=== PATIENT | female | born 1980 | race Two or more races ===

== ENCOUNTER 2019-05-03 01:47 | Emergency (ER) | payer SELFPAY ==
[~2019-05-03] VITALS: Ht 154.9 cm; Wt 84.4 kg
[2019-05-03] MEDS ORDERED: ONDANSETRON PF 4 MG/2 ML VIAL. IV ONE (02:15)
--- NOTE | 2019-05-03 02:15 | PHYS DOC ---
Adult General Chief Complaint Chief Complaint: ABDOMINAL PAIN HPI HPI 39-year-old female presents to the emergency bowel complaints of right upper quadrant abdominal pain. Patient initially started 2 days ago, states he went to the primary care physician tests were obtained and pain medications were provided. She states her last couple days pain is improved however tonight it came back. She described as a constant sensation. No fever, no diarrhea however nausea. She denies any vomiting. Nothing makes her pain worse, nothing makes her pain better. She has no epigastric tenderness on exam. Patient states the pain radiates around to her back. Review of Systems Review of Systems Constitutional: Denies fever or chills [] Respiratory: Denies cough or shortness of breath [] Cardiovascular: No additional information not addressed in HPI [] GI: + abdominal pain, nausea, no vomiting, bloody stools or diarrhea [] : Denies dysuria or hematuria [] Musculoskeletal: Pain radiates from right upper quadrant around to her back Neurologic: Denies headache, focal weakness or sensory changes [] All other systems were reviewed and found to be within normal limits, except as documented in this note. Current Medications Current Medications Current Medications Medications (Trade) Dose Ordered Sig/Bennett Start Time Stop Time Status Last Admin Dose Admin Fentanyl Citrate (Fentanyl 2ml Vial) 50 mcg 1X ONCE 05/03/19 02:45 05/03/19 02:46 DC 05/03/19 02:41 50 MCG Ondansetron HCl (Zofran) 4 mg 1X ONCE 05/03/19 02:15 05/03/19 02:39 DC 05/03/19 02:41 4 MG Sodium Chloride 1,000 ml @ 1,000 mls/hr 1X ONCE 05/03/19 02:30 05/03/19 03:29 DC 05/03/19 02:41 1,000 MLS/HR Allergies Allergies Allergies Coded Allergies Type Severity Reaction Last Updated Verified No Known Drug Allergies 05/03/19 No Physical Exam Physical Exam Constitutional: Well developed, well nourished, acute distress secondary to pain HENT: Normocephalic, atraumatic, bilateral external ears normal, oropharynx moist, no oral exudates, nose normal. [] Eyes: PERRLA, EOMI, conjunctiva normal, no discharge. [] Cardiovascular:Heart rate regular rhythm, no murmur [] Lungs & Thorax: Bilateral breath sounds clear to auscultation [] Abdomen: Tender to palpation right upper quadrant, no masses appreciated, bowel sounds present Skin: Warm, dry, no erythema, no rash. [] Extremities: No tenderness, no cyanosis, no edema. [] Neurologic: Alert and oriented X 3, no focal deficits noted. [] Psychologic: Affect normal, judgement normal, mood normal. [] Current Patient Data Vital Signs Vital Signs Date Time Temp Pulse Resp B/P (MAP) Pulse Ox O2 Delivery O2 Flow Rate FiO2 05/03/19 03:18 76 14 112/77 (89) 97 Room Air 05/03/19 02:06 98.3 98.3 Lab Values Laboratory Tests Test 05/03/19 02:00 05/03/19 03:16 White Blood Count 10.0 x10^3/uL (4.0-11.0) Red Blood Count 4.53 x10^6/uL (3.50-5.40) Hemoglobin 12.6 g/dL (12.0-15.5) Hematocrit 38.2 % (36.0-47.0) Mean Corpuscular Volume 84 fL (79-100) Mean Corpuscular Hemoglobin 28 pg (25-35) Mean Corpuscular Hemoglobin Concent 33 g/dL (31-37) Red Cell Distribution Width 15.7 % (11.5-14.5) H Platelet Count 321 x10^3/uL (140-400) Neutrophils (%) (Auto) 46 % (31-73) Lymphocytes (%) (Auto) 44 % (24-48) Monocytes (%) (Auto) 4 % (0-9) Eosinophils (%) (Auto) 5 % (0-3) H Basophils (%) (Auto) 1 % (0-3) Neutrophils # (Auto) 4.6 x10^3/uL (1.8-7.7) Lymphocytes # (Auto) 4.4 x10^3/uL (1.0-4.8) Monocytes # (Auto) 0.4 x10^3/uL (0.0-1.1) Eosinophils # (Auto) 0.5 x10^3/uL (0.0-0.7) Basophils # (Auto) 0.1 x10^3/uL (0.0-0.2) Sodium Level 139 mmol/L (136-145) Potassium Level 3.9 mmol/L (3.5-5.1) Chloride Level 103 mmol/L (98-107) Carbon Dioxide Level 24 mmol/L (21-32) Anion Gap 12 (6-14) Blood Urea Nitrogen 15 mg/dL (7-20) Creatinine 0.9 mg/dL (0.6-1.0) Estimated GFR (Cockcroft-Gault) 70.5 BUN/Creatinine Ratio 17 (6-20) Glucose Level 145 mg/dL (70-99) H Calcium Level 9.0 mg/dL (8.5-10.1) Total Bilirubin 0.4 mg/dL (0.2-1.0) Aspartate Amino Transferase (AST) 173 U/L (15-37) H Alanine Aminotransferase (ALT) 318 U/L (14-59) H Alkaline Phosphatase 89 U/L (46-116) Total Protein 7.2 g/dL (6.4-8.2) Albumin 3.3 g/dL (3.4-5.0) L Albumin/Globulin Ratio 0.8 (1.0-1.7) L Lipase 141 U/L (73-393) POC Urine HCG, Qualitative Hcg negative (Negative) Laboratory Tests 05/03/19 02:00 Laboratory Tests 05/03/19 02:00 EKG EKG [] Radiology/Procedures Radiology/Procedures [] Course & Med Decision Making Course & Med Decision Making Pertinent Labs and Imaging studies reviewed. (See chart for details) []39-year-old female presents to the emergency bowel complaints of right upper quadrant abdominal pain. Patient initially started 2 days ago, states he went to the primary care physician tests were obtained and pain medications were provided. She states her last couple days pain is improved however tonight it came back. She described as a constant sensation. No fever, no diarrhea however nausea. She denies any vomiting. Nothing makes her pain worse, nothing makes her pain better. She has no epigastric tenderness on exam. Patient states the pain radiates around to her back. Labs/Imaging reviewed. White blood cell count 10.0, AST 137, ALT 318, alkaline phosphatase normal, lipase 141 within normal limits. HCG negative. Wet read of ultrasound of the gallbladder reveals no significant thickening of the color wall, common bile duct within normal limits. No evidence of cholecystitis or cholelithiasis. There is evidence of fatty liver appreciated. Discussed with patient she may have a normal structural gallbladder however consider further workup with outpatient provider regarding PIPIDA scan. Pain has subsequently bee n relieved with fentanyl and Zofran. Her vital by mouth pain medications as well as antinausea medication upon discharge. Discussed with patient if pain worsens, fever, nausea vomiting she can return to the emergency department for further evaluation. Dragon Disclaimer Dragon Disclaimer This electronic medical record was generated, in whole or in part, using a voice recognition dictation system. Departure Departure Impression: Primary Impression: Right upper quadrant abdominal pain Additional Impressions: Elevated liver function tests Steatosis of liver Disposition: HOME, SELF-CARE Condition: STABLE Patient Instructions: Biliary Colic Additional Instructions: Recommend follow up with PCP 3 - 5 days, consider PIPIDA scan as outpatient to evaluate function of gallbladder Return to the ER with worsening symptoms, intractable pain, fever, altered mental status Duncan prescription provided for pain Zofran prescription provided for nausea Scripts Ondansetron Hcl (ZOFRAN) 4 Mg Tablet 1 TAB PO PRN Q6-8HRS, #12 TAB Prov: JAKE RAMIREZ MD 05/03/19 Hydrocodone/Apap 7.5-325 (NORCO 7.5-325 TABLET) 1 Each Tablet 1 TAB PO PRN Q6HRS PRN for PAIN for 3 Days, TAB 0 Refills Prov: JAKE RAMIREZ MD 05/03/19 Problem Qualifiers JAKE RAMIREZ MD May 03, 2019 02:15
[2019-05-03 02:19] LABS: BASO # 0.1 x10^3/uL (0.0-0.2); BASO % 1 % (0-3); EOS # 0.5 x10^3/uL (0.0-0.7); EOS % 5 % (0-3); HEMATOCRIT 38.2 % (36.0-47.0); HEMOGLOBIN 12.6 g/dL (12.0-15.5); LYMPH # 4.4 x10^3/uL (1.0-4.8); LYMPH % 44 % (24-48); MEAN CORPUSCULAR HEMOGLOBIN 28 pg (25-35); MEAN CORPUSCULAR HGB CONC 33 g/dL (31-37); MEAN CORPUSCULAR VOLUME 84 fL (79-100); MONO # 0.4 x10^3/uL (0.0-1.1); MONO % 4 % (0-9); NEUT # 4.6 x10^3/uL (1.8-7.7); NEUT % 46 % (31-73); PLATELET COUNT 321 x10^3/uL (140-400); RED BLOOD COUNT 4.53 x10^6/uL (3.50-5.40); RED CELL DISTRIBUTION WIDTH 15.7 % (11.5-14.5)
[2019-05-03 02:29] LABS: CREATININE 0.9 mg/dL (0.6-1.0); GFR 70.5; POTASSIUM 3.9 mmol/L (3.5-5.1)
[2019-05-03] MEDS ORDERED: IV NORMAL SALINE 1000ML BAG 1,000 ML IV ONE (02:30)
[2019-05-03 02:34] LABS: ALBUMIN 3.3 g/dL (3.4-5.0); ALBUMIN/GLOBULIN RATIO 0.8 (1.0-1.7); TOTAL BILIRUBIN 0.4 mg/dL (0.2-1.0); TOTAL PROTEIN 7.2 g/dL (6.4-8.2)
[2019-05-03] MEDS ORDERED: fentaNYL PF VIAL 100 MCG/2 ML VIAL IV ONE (02:45)
[2019-05-03 03:18] VITALS: BP 112/77
[2019-05-03 04:09] LABS: BILIRUBIN,URINE NEGATIVE (NEG); CLARITY,URINE CLEAR; COLOR,URINE YELLOW; NITRITE,URINE NEGATIVE (NEG); PROTEIN,URINE NEGATIVE (NEG-TRACE)
[2019-05-03] MEDS ORDERED: ONDA4TAB7 PO (04:19)
[2019-05-03] MEDS ORDERED: HYDR-3165 PO (04:19)
[2019-05-03 04:25] LABS: SQUAMOUS EPITHELIAL CELL,UR MOD /LPF
--- NOTE | 2019-05-03 04:25 | RAD ---
Examination: Ultrasound abdomen limited HISTORY: History of right upper quadrant pain COMPARISON: None available FINDINGS: The pancreas is not well-visualized due to bowel gas. There is increased echogenicity identified in the liver likely hepatic steatosis. The liver measures 18.7 cm. The gallbladder is mildly distended. No evidence of gallstones. The common bile duct measures 4.4 mm in transverse dimension. Right kidney measures 10.2 cm in length. The visualized IVC is within normal limits of dimension. IMPRESSION: 1. Hepatic steatosis. Electronically signed by: Piotr Longoria MD (05/03/2019 4:21 AM) [id number]
[2019-05-03 04:26] LABS: BACTERIA,URINE FEW /HPF (0-FEW); RBC,URINE 0 /HPF (0-2)
== END 2019-05-03 04:31 | disposition home or self-care (01) ==
LOC: ER 01:47
DX: K76.0 Fatty (change of) liver, not elsewhere classified (principal); R10.11 Right upper quadrant pain; R79.89 Other specified abnormal findings of blood chemistry
CPT/HCPCS: 36415; 76705; 80053; 81001; 81025; 83690; 85025; 96374; 96375; 99285; J2405; J3010; J7030

== ENCOUNTER 2020-04-07 22:40 | Emergency (ER) | payer SELFPAY ==
[~2020-04-07] VITALS: Ht 172.7 cm; Wt 77.0 kg
[~2020-04-07 22:40] MED LIST: HYDR-3165 PO; ONDA4TAB7 PO
[2020-04-07 23:05] VITALS: BP 152/87
[2020-04-07] MEDS ORDERED: HYDROcodone/APAP 5/325MG 1 TAB TABLET PO ONE (23:30)
[2020-04-07] MEDS ORDERED: HYDR-3164 PO (23:47)
--- NOTE | 2020-04-07 23:48 | PHYS DOC ---
Past Medical History Past Medical History: Diabetes-Type II Past Surgical History: Tubal ligation Smoking Status: Never Smoker Alcohol Use: None Drug Use: None General Adult EDM: Chief Complaint: ANKLE PROBLEM HPI: HPI: The history was obtained from the patient. Patient is a 40-year-old female with PMH [id number] diabetes who presents with a chief complaint of right ankle pain status post injury. Coworker uses electro optical engineer at bedside with patient's permission. Patient states while walking up a flight of stairs at home just prior to arrival she twisted her right ankle. She states she was only on the first step. She states she fell backward on the ground. She describes an inversion ankle injury. She notes pain over the lateral medial malleolus. States the pain is worse over the medial malleolus. Noted swelling. States she did try 60 mg of ibuprofen with minimal relief. Does note some right knee pain. Denies striking her head or LOC. Has not been ambulatory since the fall. No other complaints. Review of Systems: Review of Systems: Constitutional: Denies fever or chills. [] Eyes: Denies change in visual acuity. [] HENT: Denies nasal congestion or sore throat. [] Respiratory: Denies cough or shortness of breath. [] Cardiovascular: Denies chest pain or edema. [] GI: Denies abdominal pain, nausea, vomiting, bloody stools or diarrhea. [] : Denies dysuria. [] Musculoskeletal: Positive for myalgias and arthralgias Integument: Denies rash. [] Neurologic: Denies headache, focal weakness or sensory changes. [] Endocrine: Denies polyuria or polydipsia. [] Lymphatic: Denies swollen glands. [] Psychiatric: Denies depression or anxiety. [] Heart Score: Risk Factors: Risk Factors: DM, Current or recent (<one month) smoker, HTN, HLP, family history of CAD, obesity. Risk Scores: Score 0 - 3: 2.5% MACE over next 6 weeks - Discharge Home Score 4 - 6: 20.3% MACE over next 6 weeks - Admit for Clinical Observation Score 7 - 10: 72.7% MACE over next 6 weeks - Early Invasive Strategies Current Medications: Current Medications Medications (Trade) Dose Ordered Sig/Bennett Start Time Stop Time Status Last Admin Dose Admin Acetaminophen/ Hydrocodone Bitart (Lortab 5/325) 2 tab 1X ONCE 04/07/20 23:30 04/07/20 23:31 DC 04/07/20 23:14 2 TAB Allergies: Allergies: Allergies Coded Allergies Type Severity Reaction Last Updated Verified No Known Drug Allergies 05/03/19 No Physical Exam: PE: Constitutional: Well developed, well nourished, no acute distress, non-toxic appearance. [] HENT: Normocephalic, atraumatic, bilateral external ears normal, oropharynx moist, no oral exudates, nose normal. [] Eyes: PERRLA, EOMI, conjunctiva normal, no discharge. [] Neck: Normal range of motion, no tenderness, supple, no stridor. [] Cardiovascular:Heart rate regular rhythm, no murmur [] Lungs & Thorax: Bilateral breath sounds clear to auscultation [] Abdomen: soft, no tenderness, no masses, no pulsatile masses. [] Skin: Warm, dry, no erythema, no rash. [] Back: No tenderness, no CVA tenderness. [] Extremities: R KNEE/ANKLE/FOOT: Focal tenderness to palpation at the medial and lateral malleoli. Tissue compartments are soft. Distal pulses are 2+. Knee extension is intact. Plantar flexion is intact. Proximal fibula is not tender to palpation. 5th metatarsal head is not tender to palpation. There is no obvious deformity. Passive ROM is reduced due to pain. Active ROM is reduced due to pain. Neurologic: Alert and oriented X 3, normal motor function, normal sensory function, no focal deficits noted. [] Psychologic: Affect normal, judgement normal, mood normal. [] Current Patient Data: Vital Signs: Vital Signs Date Time Temp Pulse Resp B/P (MAP) Pulse Ox O2 Delivery O2 Flow Rate FiO2 04/07/20 23:14 18 98 Room Air 04/07/20 23:05 98.3 92 152/87 (108) 98.3 EKG: EKG: [] Radiology/Procedures: Radiology/Procedures: [][facility] [address] [place] [address] IMAGING REPORT Signed PATIENT: PATRICE PÉREZ ACCOUNT: [id number] : 1980 LOCATION: ER AGE: 40 SEX: F EXAM STATUS: REG ER ORD. PHYSICIAN: YASMINE RODRIGUEZ DO REASON: R medial ankle pain s/p injury PROCEDURE: ANKLE RIGHT 3V Exam: Right ankle 3 views INDICATION: Right medial ankle pain status post injury TECHNIQUE: Frontal, lateral and oblique views of the right ankle Comparisons: None FINDINGS: Bone mineralization is normal. No acute or healed fractures. Soft tissues are unremarkable. Joint spaces are well-maintained. IMPRESSION: No acute osseous abnormality. Electronically signed by: Jon Plata MD (04/07/2020 11:47 PM) [id number] DICTATED and SIGNED BY: JON PLATA MD DATE: 04/07/20 8683 Course & Med Decision Making: Course & Med Decision Making Pertinent Labs and Imaging studies reviewed. (See chart for details) Patient is a 40-year-old female who presents with chief complaint of right ankle pain status post described inversion injury. Exam noted above. Plain film imaging reveals no obvious fracture of the knee or right ankle joints. Patient has been unable to bear weight in the emergency department. She will be given an Aircast and crutches. She was given supportive care measures. She was instructed to return in a week if she is not able to bear weight. She will be given referral to primary care physician as well as agriculture extension specialist to follow-up with should her symptoms not improve. She is agreeable to this plan. Stable for discharge. Wayne Disclaimer: Wayne Disclaimer: This electronic medical record was generated, in whole or in part, using a voice recognition dictation system. Departure Departure Impression: Primary Impression: Injury of ankle, right Qualified Codes: S99.911A - Unspecified injury of right ankle, initial encounter Disposition: 01 HOME, SELF-CARE Condition: STABLE Referrals: CHRISTIANO HOOD MD Patient Instructions: Ankle Sprain Additional Instructions: [facility] [address] [place] [address] [facility] [address] [place] [address] [facility] [address] [place] [address] [facility] [address] [place] [address] [address] [address] [place] [address] [facility] [address] [place] [address] [facility] [place] [address] [place] [address] [facility] [address] [place] [address] [facility] [address] [place] [address] [facility] [address] [place] [address] Scripts Hydrocodone/Apap 5-325 (NORCO 5-325 TABLET) 1 Each Tablet 1-2 EACH PO PRN Q6HRS PRN for PAIN, #10 as needed for pain Prov: YASMINE RODRIGUEZ DO 04/07/20 Justicifation of Admission Dx: Justifications for Admission: Justification of Admission Dx: N/A YASMINE RODRIGUEZ DO Apr 07, 2020 23:48
--- NOTE | 2020-04-07 23:52 | RAD ---
Exam: Right knee 3 views INDICATION: Knee pain TECHNIQUE: Frontal, lateral and oblique views of the right knee Comparisons: None FINDINGS: Bone mineralization is normal. No acute or healed fractures. Soft tissues are unremarkable. Joint spaces are well-maintained. IMPRESSION: No acute osseous abnormality. Electronically signed by: Jon Curry MD (04/07/2020 11:49 PM) [id number]
== END 2020-04-08 00:10 | disposition home or self-care (01) ==
LOC: ER 22:40
DX: S99.811A Other specified injuries of right ankle, initial encounter (principal); M25.561 Pain in right knee; R60.0 Localized edema; E11.9 Type 2 diabetes mellitus without complications; Z98.51 Tubal ligation status; W01.0XXA Fall on same level from slipping, tripping and stumbling without subsequent striking against object, initial encounter; Y93.89 Activity, other specified; Y92.89 Other specified places as the place of occurrence of the external cause; Y99.8 Other external cause status
CPT/HCPCS: 73562; 73610; 99284; L4350